=== PATIENT | male | born 1950 | race Caucasian/White ===

== ENCOUNTER 2016-10-23 12:48 | Observation (INO) | payer MEDICARE ==
[~2016-10-23] VITALS: Ht 167.6 cm; Wt 68.9 kg
[2016-10-23] VITALS (8 sets, daily range): BP systolic 98–127; BP diastolic 53–76; PULSE 50–63; RESP 14–22; O2SAT 96–99
[~2016-10-23 12:48] MED LIST: ASPI81TA3 PO; ATOR40TA69 PO; CLOP75TA28 PO; DIAZ5TAB PO; FOLI-89 PO; HYDR-3740 PO; LAMO100T2 PO; LAMO300T2 PO; LISI2.5T PO; METO25TA99 PO; MUSCLE SPASM MED; NITR0.4T SL; OMEP40CA36 PO; [UNRECOGNIZED DRUG - OTHER]
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
[2016-10-23] MEDS ORDERED: Nitroglycerin 2% 1 Gm Ointment TOPICAL ONE (13:05)
[2016-10-23] MEDS ORDERED: Heparin 5,000 Unit/mL Inj IVPUSH ONE (13:25)
[2016-10-23] MEDS ORDERED: Heparin 25K Unit/500mL 0.45 NS 25,000 UNIT in IV Premix 1 EACH IV ONE (13:25)
[2016-10-23 13:28] LABS: Mean Corpuscular Volume 91.9 fL (81-100); NEUTROPHILS % (AUTO) 69.1 % (40-74); Platelet Count 208 bil/L (150-400)
[2016-10-23 13:34] LABS: BASOPHILS % (AUTO) 0.9 % (0-3); MONOCYTES % (AUTO) 7.3 % (4-12); Mean Corpuscular Hemoglobin 31.4 pg (27.0-35.0)
[2016-10-23 13:48] LABS: TROPONIN T < 0.010 ug/L (0.0-0.011)
[2016-10-23 13:53] LABS: Magnesium 2.2 mg/dL (1.6-2.6)
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
[2016-10-23] MEDS ORDERED: Ondansetron 2 mg/mL 2 mL Inj IVPUSH PRN ×2 (14:30→16:50)
[2016-10-23] MEDS ORDERED: Alum-Mag Hydrox-Simeth 30 mL Suspension PO PRN ×2 (14:30→16:50)
[2016-10-23] MEDS ORDERED: TRAM50TA2 PO (14:43)
[2016-10-23] MEDS ORDERED: LAMO100T66 PO (16:19)
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
[2016-10-23] MEDS ORDERED: Heparin 5,000 Unit/mL Inj IVPUSH PRN (16:45)
[2016-10-23] MEDS ORDERED: Heparin 25K Unit/500mL 0.45 NS 25,000 UNIT in IV Premix 1 EACH IV SCH (16:45)
[2016-10-23] MEDS ORDERED: Atropine 1 mg/10 mL (Code) Syringe IVPUSH PRN (16:50)
[2016-10-23] MEDS ORDERED: Senna-Docusate 8.6-50 mg Tablet PO PRN (16:50)
[2016-10-23] MEDS ORDERED: Polyethylene Glycol (PEG) 17 Gm Powder PO PRN (16:50)
--- NOTE | 2016-10-23 18:47 | PCM.ADCARE ---
Advance Care Planning Note Plan: Purpose of encounter: Goals of care Parties in attendance: The patient, Dr. Mustafa Decisional capacity: Good Diagnosis: Chest pain CAD GERD Bipolar Myalgia Plan: The patient is aware of the current diagnosis and would like to continue to be full code. The patient understands that this means for chest compressions , intubation, pressors, and all measures involved with CPR. Patient states that his next of kin/decision-maker should he become intubated should be his ex- Julisa Drake. CODE STATUS: Full code Time spent with advanced care planning: Greater than 16 minutes Poonam Mustafa DO Oct 23, 2016 18:47 Poonam Mustafa DO Oct 23, 2016 18:47
--- NOTE | 2016-10-23 19:32 | NUR ---
Admit Pt arrived from ER to [facility]. A&O X3. MAE. HAILE. Able to make needs known. Tele SB 50s. Denies chest pain but does state chronic abdominal pain. Lungs clear and equal. Last BM today. No edema. pedal and radial pulses present. Bowel tones active. Report given to night RN.
--- NOTE | 2016-10-24 00:39 | NUR ---
Patient was quite agitated upon initial assessment. He had gotten out of bed, become tangled in his tele and IV cords and was stating he was "getting out of here." Patient de-escalated after being provided a plan for treatment and some pain medication. He admitted he was anxious and probably a bit "manic." Stated he had been trying to wean himself off his bipolar medications. 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 Presents as depressed and agitated. Having difficulty sleeping, feels he should be up "working on something." Paces the torres frequently. Denies any current chest pain.
--- NOTE | 2016-10-24 03:43 | NUR ---
Pain Pt c/o generalized 08/13 pain. Repositioned and ambulated independently around the hallway twice with IV pole. Tramadol 100mg given per request. Care continues. Addendum: 10/24/16 at 0350 by KAMLA MATHEW RN Assumed care at 0100.
[2016-10-24 04:15] VITALS: BP 94/55; PULSE 60; RESP 16; O2SAT 98
[2016-10-24 04:55] LABS: BASOPHILS % (AUTO) 0.9 % (0-3); EOSINOPHILS % (AUTO) 3.4 % (0-5); MONOCYTES % (AUTO) 7.7 % (4-12); Mean Corpuscular Hemoglobin 31.1 pg (27.0-35.0); Mean Corpuscular Volume 91.4 fL (81-100); NEUTROPHILS % (AUTO) 61.2 % (40-74); Platelet Count 186 bil/L (150-400)
[2016-10-24 05:48] LABS: TROPONIN T 0.01 ug/L (0.0-0.011)
[2016-10-24 07:38] VITALS: BP 114/67; PULSE 53; RESP 18; O2SAT 97
[2016-10-24] MEDS ORDERED: 0.9% Sodium Chloride 1,000 ML IV ONE (07:50)
[2016-10-24] MEDS ORDERED: lamoTRIgine 100 mg Tablet PO SCH (08:30)
[2016-10-24] MEDS ORDERED: LAMOTRIGINE 300 MG PO SCH (08:30)
[2016-10-24] MEDS ORDERED: MeTOProlol XL 25 mg ER24 Tablet PO SCH (09:40)
[2016-10-24 10:22] VITALS: PULSE 60
--- NOTE | 2016-10-24 10:43 | NUR ---
Case Management: Bennett and Medicare Part D pamphlet delivered and explained to pt. Signed original placed in chart and copy left at bedside. Thanks, Pavithra Amezcua RN
--- NOTE | 2016-10-24 11:28 | NUR ---
Social work note - Initial Assessment David Drake is a 65 yr old who was admitted for unstable angina. EMR reviewed: Pt has Medicare insurance. Pt's PCp is Angelic STONE. No DPOA - Pt refused information. No VA, LTC insurance. Readmit score is high. See attached CM initial assessment. [employer] met with pt - introduced D/C planning and explained SW role. Pt lives at home alone. He is , is estranged from his children. He states that his friend Pasha Morris [phone] is his emergency contact but he is not interested in DPOA - wants to go through his employment attorney. He is independent at baseline, no equipment, drives He plans to d/c home with no needs anticipated. Pt states he will drive himself home. [employer] will follow if needs arise. Plan: Home alone, no needs. Transport home by POV> ELOY Salguero Addendum: 10/24/16 at 1132 by SYBIL SIMMS SS Amended: Links added.
[2016-10-24 11:36] VITALS: BP 136/68; PULSE 59; RESP 20; O2SAT 98
--- NOTE | 2016-10-24 14:12 | PCM.PNMED ---
Subjective Date of Service Oct 24, 2016 Subjective This is a 65-year-old male with past medical history significant for coronary artery disease status post stent placement who presented for chest pressure. Overnight patient did well. He did have one episode of emesis after he almost swallowed hand vp research. He states that he had one episode of chest pressure that resolved spontaneously after a few seconds. Otherwise review of systems negative. Exam Vital Signs Vital Sign - Last Date Time Temp Pulse Resp B/P Pulse Ox O2 Delivery O2 Flow Rate FiO2 10/24/16 11:36 36.8 59 20 136/68 98 Room Air Intake and Output 10/23/16 10/23/16 10/24/16 Cumulative From/Thru 15:00 23:00 07:00 10/23/16 12:50 - 10/24/16 06:46 Intake Total 400 ml 400 ml 800 ml Output Total 0 ml 0 ml Balance 400 ml 400 ml 800 ml Intake Oral 400 ml 400 ml 800 ml Output Urine Total 0 ml 0 ml # Voids 1 4 5 # Bowel Movements 0 0 Exam General: No acute distress, well-developed, well-nourished, appropriately interactive HEENT: Normocephalic, atraumatic. Neck: Supple with full range of motion. No jugular venous distension. Cardiovascular: Bradycardia with regular rhythm with no murmurs, rubs, or gallops appreciated Pulmonary: Course lung sound bilaterally. Normal respiratory effort with no use of accessory muscles. Abdomen: Bowel tones present. Soft, Diffuse tenderness that patient states is chronic, nondistended. No hepatosplenomegaly or masses appreciated. Extremities: No clubbing, cyanosis, edema, or lymphadenopathy appreciated. Psychiatric: Normal mood and affect. Alert and oriented to person, place, and time. Lab and Diagnostics Result Diagram: 10/24/16 0830 10/24/16 0445 X-Rays, CTs and MRIs Chest x-ray on 10/23/2016: IMPRESSION: Stable chest. No acute cardiopulmonary process is suspected. Dictated by: Bin Coates M.D. on 10/23/2016 at 13:22 Assessment & Plan This is a 65-year-old male with past medical history significant for coronary disease status post drug eluting stent placement in April of 2016 who presents for chest pressure. The chest pressure radiated to his jaw and right arm. It was not associated shortness of breath, nausea, or vomiting. This is likely unstable angina. Chest pressure, present on admission, ongoing: -Patient has history of myocardial infarction. He states that this chest pressure feels similar. -Troponin x3 negative. -Contacted Dr. Wing of cardiology today: stop heparin, order exercise stress test, continue beta jessica . -Plavix and aspirin continued. Chronic kidney disease, present on admission, ongoing: -On admit BUN 20, creatinine 1.40. Patient does see [facility] with baseline creatinine from 1.4-1.7. -Continue to monitor. Bipolar disorder, present on admission, ongoing: -Patient on lamotrigine. -Continue medication. Gastroesophageal reflux disease, present on admission, ongoing: -Continue home meds. Chronic muscle skeletal pain, present on admission, ongoing: -Continue home meds. Patient is admitted under observation status with expected length of stay less than 2 midnights due to severity of presenting symptoms, risk of adverse event, and complexity of treatment plan. Pain Evaluation: Adequate Pain Control Resuscitation Status: CPR: Attempt Resuscitation Troy Costa DO Oct 24, 2016 14:12
[2016-10-24] MEDS ORDERED: Heparin 5,000 Unit/mL Inj SUBQ SCH (16:30)
[2016-10-24 18:05] VITALS: BP 113/68; PULSE 56; RESP 22; O2SAT 98
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
--- NOTE | 2016-10-24 19:09 | PCM.DIMED ---
Troy Costa DO 10/24/16 1909: Discharge Instructions Date of Service Oct 24, 2016 Dates of Hospitalization Oct 23, 2016 at 14:28 Discharge Diagnosis Discharge Diagnosis Chest pressure Chronic kidney disease Bipolar disorder Gastroesophageal reflux disease Chronic muscle skeletal pain Diet Discharge Diet: Heart Healthy Activity Discharge Activity: Limited until seen by PCP Call your provider Call your provider for: Fever or Chills, Shortness of breath, Bleeding, Chest pain, Vomitting, Excessive diarrhea, Weakness (unilateral) Patient Instructions Patient Instructions You came to the hospital for chest pressure. While you were here we did blood tests to see if your heart was injured. These did not show a injury. We also ran you on a treadmill and monitored your heart which was normal. As you stated you are no longer having symptoms. I have not made any medication changes. You need to take your medications everyday. You need a followup appointment with your sociology adjunct instructor, Dr. Richard, in 2 weeks. You need to see your primary care provider in one week. If you have any worsening symptoms such as chest pain or pressure, shortness of breath, nausea, vomiting, numbness or tingling in arms or legs, excessive sweating, headaches, visual changes then you need to return to the emergency department immediately. Follow-up Provider: Angelic Hooper Follow-up with PCP in: 1 week Provider: Rell Richard MD Follow-up in: 2 weeks Poonam Mustafa DO 10/25/16 1438: Discharge Instructions Attending's Statement The patient was seen and examined together with Dr. Costa on 10/24/16 and I agree with the history, exam and plan as outlined in the note above. Troy Costa DO Oct 24, 2016 19:09 Poonam Mustafa DO Oct 25, 2016 14:38
--- NOTE | 2016-10-24 19:47 | NUR ---
D/C Pt discharged to home at 1954. PT was escorted to car with MARY ALICE Rashid. PT is driving himself home. PT understands all f/u care and will make 2 follow up appts as recommended. PT given d/c instructions. NO prescriptions were given.
--- NOTE | 2016-10-24 19:57 | PCM.DC.MED ---
Discharge Summary Date of Service Oct 24, 2016 Dates of Hospitalization Date of Hospital Admission Oct 23, 2016 at 14:28 Date of Discharge: Oct 24, 2016 Providers: Admitting Physician: Poonam Mustafa DO Primary Care Physician: Angelic Hooper Attending Physician: Poonam Mustafa DO Diagnosis at Time of Discharge Diagnosis at Time of Discharge Chest pressure Chronic kidney disease Bipolar disorder Gastroesophageal reflux disease Chronic muscle skeletal pain Procedures XRay, CTs & MRIs Chest x-ray on 10/23/2016: IMPRESSION: Stable chest. No acute cardiopulmonary process is suspected. Dictated by: Bin Coates M.D. on 10/23/2016 at 13:22 Brief History This is a 65-year-old male with past medical history significant for coronary artery disease status post stent placement, tobacco dependence, chronic kidney disease, and bipolar disorder who presented with chest pressure. The patient stated that over the last several months he has had several episodes of chest pressure that occurred at rest. He did not use his nitroglycerin when these occured because he stated that he forgot how to use this medication. At 10 AM on day of admit he began to have severe substernal chest pressure that radiated to his jaw and right arm. The symptoms were similar to his previous myocardial infarction. In the emergency department he was given nitroglycerin, aspirin, and plavix with relief of symptoms. He denies any shortness of breath, diaphoresis, nausea, or vomiting. Of note, the patient admits to some noncompliance with his medications. His cardiac history is significant for a ST elevation anterior wall AK on 2015. At that time Dr. Betts performed a cath which showed 80-90% lesion of mid segment of the LAD as well as a 40% lesion distal to it. He subsequently had a drug-eluting stent placed. Hospital Course This is a 65-year-old male with past medical history significant for coronary disease status post drug eluting stent placement in April of 2016 who presents for chest pressure. In the hospital the patient had troponin negative x3. Exercise stress test was low risk and showed no concerning abnormalities. I spoke with Dr. Han and he stated that patient is low risk and can followup as outpatient with general internist and physician leader. Patient was stable on discharge. Chest pressure, present on admission, ongoing: -Patient has history of myocardial infarction with stent placement. -Troponin x3 negative. -Plavix and aspirin continued on discharge. -Metoprolol continued on discharge. -Patient asked to followup with cardiology in two weeks and his primary care within one week. Chronic kidney disease, present on admission, ongoing: -On admit BUN 20, creatinine 1.40. Patient does see [facility] with baseline creatinine from 1.4-1.7. -Creatinine was stable on discharge. Bipolar disorder, present on admission, ongoing: -Patient is to continue on lamotrigine. Gastroesophageal reflux disease, present on admission, ongoing: -Continue home meds. Chronic muscle skeletal pain, present on admission, ongoing: -Continue home meds. Patient is admitted under observation status with expected length of stay less than 2 midnights due to severity of presenting symptoms, risk of adverse event, and complexity of treatment plan. Exam Vital Signs (Last) Date Time Temp Pulse Resp B/P Pulse Ox O2 Delivery O2 Flow Rate FiO2 10/24/16 18:05 36.8 56 22 113/68 98 Room Air Exam General: No acute distress, well-developed, well-nourished, appropriately interactive HEENT: Normocephalic, atraumatic. Neck: Supple with full range of motion. No jugular venous distension. Cardiovascular: Bradycardia with regular rhythm with no murmurs, rubs, or gallops appreciated Pulmonary: Course lung sound bilaterally. Normal respiratory effort with no use of accessory muscles. Abdomen: Bowel tones present. Soft, Diffuse tenderness that patient states is chronic, nondistended. No hepatosplenomegaly or masses appreciated. Extremities: No clubbing, cyanosis, edema, or lymphadenopathy appreciated. Psychiatric: Normal mood and affect. Alert and oriented to person, place, and time. Test 10/23/16 13:00 10/23/16 15:21 10/24/16 04:45 10/24/16 08:30 Magnesium Level 2.2mg/dL (1.6-2.6) Hold Urine Received (Received) White Blood Count 8.2th/mm3 (3.8-10.1) Red Blood Count 4.05mil/mm3 (4.40-5.80) Mean Corpuscular Volume 91.4fL (81-100) Mean Corpuscular Hemoglobin 31.1pg (27.0-35.0) Mean Corpuscular Hemoglobin Concent 34.1% (32.0-37.0) Red Cell Distribution Width 13.7% (12.3-15.4) Platelet Count 186bil/L (150-400) Neutrophils (%) (Auto) 61.2% (40-74) Lymphocytes (%) (Auto) 26.2% (14-46) Monocytes (%) (Auto) 7.7% (4-12) Eosinophils (%) (Auto) 3.4% (0-5) Basophils (%) (Auto) 0.9% (0-3) Sodium Level 142mEq/L (134-144) Potassium Level 4.2mEq/L (3.5-5.2) Chloride Level 108mEq/L (97-108) Carbon Dioxide Level 21mmol/L (18-29) Blood Urea Nitrogen 21mg/dL (8-27) Creatinine 1.44mg/dL (0.76-1.27) Estimat Glomerular Filtration Rate 52mL/min (>59) Glucose Level 100mg/dL (60-99) Calcium Level 9.0mg/dL (8.5-10.1) Total Bilirubin 0.3mg/dL (0.0-1.2) Aspartate Amino Transf (AST/SGOT) 14U/L (0-50) Alanine Aminotransferase (ALT/SGPT) 11U/L (0-44) Alkaline Phosphatase 91U/L (25-160) Troponin T 0.010ug/L (0.0-0.011) Total Protein 5.7g/dL (6.4-8.4) Albumin 3.9g/dL (3.4-5.0) Triglycerides Level 84mg/dL (0-149) Cholesterol Level 156mg/dL (100-199) LDL Cholesterol, Calculated 83.200mg/dL (0-99) VLDL Cholesterol 16.800mg/dL HDL Cholesterol 56mg/dL (>39) Cholesterol/HDL Ratio 2.79 (0.0-4.4) Hemoglobin 13.9g/dL (13.8-17.2) Hematocrit 40.7% (41.0-50.0) Test 10/24/16 10:42 Activated Partial Thromboplast Time 36.6sec (22.8-33.0) Discharge Medications Discharge Medications Aspirin Chew (Aspirin Chew) 81 Mg Chew 81 MG PO DAILY Prescribed by: NISH PERKINS MD Atorvastatin Calcium (Atorvastatin Calcium) 40 Mg Tablet 40 MG PO HS Prescribed by: NISH PERKINS MD Clopidogrel (Clopidogrel) 75 Mg Tablet 75 MG PO DAILY Prescribed by: NISH PERKINS MD Lamotrigine ER (Lamotrigine ER) 300 Mg Tab.er.24 300 MG PO DAILY (Reported) Take total 400 mg (300 mg & 100mg) Lamotrigine ER (Lamotrigine ER) 100 Mg Tab.er.24 100 MG PO DAILY (Reported) Take total 400 mg (300 mg & 100mg) Metoprolol Succinate ER (Metoprolol Succinate ER) 25 Mg Tab.er.24h 25 MG PO BID Prescribed by: NISH PERKINS MD As needed Nitroglycerin SL (Nitrostat) 0.4 Mg Tab.subl 0.4 MG SL Q5MIN PRN PRN For Chest Pain IF SBP > 90 Prescribed by: NISH PERKINS MD Tramadol (Tramadol) 50 Mg Tablet 100 MG PO Q6H PRN PRN For Pain (Reported) Followup Plan Discharge Diet: Heart Healthy Discharge Activity: Limited until seen by PCP Patient Instructions You came to the hospital for chest pressure. While you were here we did blood tests to see if your heart was injured. These did not show a injury. We also ran you on a treadmill and monitored your heart which was normal. As you stated you are no longer having symptoms. I have not made any medication changes. You need to take your medications everyday. You need a followup appointment with your general internist and physician leader, Dr. Richard, in 2 weeks. You need to see your primary care provider in one week. If you have any worsening symptoms such as chest pain or pressure, shortness of breath, nausea, vomiting, numbness or tingling in arms or legs, excessive sweating, headaches, visual changes then you need to return to the emergency department immediately. Follow-up Provider: Angelic Hooper Follow-up with PCP in: 1 week Provider: Rell Richard MD Follow-up in: 2 weeks Time spent Greater than 35 minutes Attending Statement The patient was seen and examined together with Dr. Costa on 10/24/16 and I have added additional information to the note above. copies to: Angelic Hooper; Rell Richard MD, Christopher DO Oct 24, 2016 19:57 Poonam Mustafa DO Oct 25, 2016 18:47
== END 2016-10-24 19:50 | disposition home or self-care (01) ==
LOC: SED 12:48 → PCC 14:28 → INTOOBSV 14:28
PROVIDERS: ADMIT Neuromusculoskeletal Medicine & OMM; ATTEND Neuromusculoskeletal Medicine & OMM
DX: R07.89 Other chest pain (principal); N18.9 Chronic kidney disease, unspecified; F31.81 Bipolar II disorder; K21.9 Gastro-esophageal reflux disease without esophagitis; M79.1 Myalgia; I25.110 Atherosclerotic heart disease of native coronary artery with unstable angina pectoris; I25.2 Old myocardial infarction; Z91.14 Patient's other noncompliance with medication regimen; K22.70 Barrett's esophagus without dysplasia; K58.9 Irritable bowel syndrome, unspecified; E78.5 Hyperlipidemia, unspecified; F17.210 Nicotine dependence, cigarettes, uncomplicated; F12.90 Cannabis use, unspecified, uncomplicated; Z95.5 Presence of coronary angioplasty implant and graft; Z79.02 Long term (current) use of antithrombotics/antiplatelets; Z79.82 Long term (current) use of aspirin
CPT/HCPCS: 36415; 71010; 80053; 80061; 83735; 84484; 85014; 85018; 85025; 85730; 93005; 93017; 96365; 96376; 99291; G0378; J1644; J7030